=== PATIENT | male | born 1980 | race Two or more races ===

== ENCOUNTER 2019-02-14 17:30 | Emergency (ER) | payer OTHER ==
[~2019-02-14] VITALS: Ht 172.7 cm; Wt 77.1 kg
[~2019-02-14 17:30] MED LIST: ALBUTEROL2.5 MG/3 M IH; OSEL75CA PO
[2019-02-15] MEDS ORDERED: BUTALBIT-ACETA1 EACH PO (00:17)
[2019-02-15] MEDS ORDERED: AIRBORNE EFFER1 EACH PO (00:17)
== END 2019-02-15 00:30 | disposition home or self-care (01) ==
LOC: ER 17:30
DX: K52.9 Noninfective gastroenteritis and colitis, unspecified (principal); E86.0 Dehydration

== ENCOUNTER 2019-03-06 20:47 | Emergency (ER) | payer OTHER ==
[~2019-03-06] VITALS: Ht 172.7 cm; Wt 77.1 kg
[~2019-03-06 20:47] MED LIST changes: +AIRBORNE EFFER1 EACH PO; +BUTALBIT-ACETA1 EACH PO
[2019-03-06] MEDS ORDERED: SODIUM CHLORIDE (21:06)
[2019-03-06] MEDS ORDERED: [UNRECOGNIZED DRUG - OTHER] (21:07)
== END 2019-03-06 23:54 | disposition home or self-care (01) ==
LOC: ER 20:47
DX: J32.8 Other chronic sinusitis (principal)

== ENCOUNTER 2020-07-03 20:11 | Emergency (ER) | payer OTHER ==
[~2020-07-03] VITALS: Ht 172.7 cm; Wt 85.7 kg
[~2020-07-03 20:11] MED LIST changes: +SODIUM CHLORIDE; +[UNRECOGNIZED DRUG - OTHER]
[2020-07-05] MEDS ORDERED: MEDROL8 MG PO (04:46)
== END 2020-07-03 21:44 | disposition home or self-care (01) ==
LOC: ER 20:11
DX: H01.005 Unspecified blepharitis left lower eyelid (principal)

== ENCOUNTER → 2020-07-04 | Emergency (ER) | payer OTHER ==
[~2020-07-04] VITALS: Ht 170.2 cm; Wt 77.1 kg
[~2020-07-04] MED LIST changes: +MEDROL8 MG PO
== END | disposition home or self-care (01) ==
LOC: ER 23:44
DX: H01.002 Unspecified blepharitis right lower eyelid (principal)

== ENCOUNTER 2020-10-30 18:15 | Emergency (ER) | payer OTHER ==
[~2020-10-30] VITALS: Ht 175.3 cm; Wt 90.7 kg
== END 2020-10-30 22:29 | disposition home or self-care (01) ==
LOC: ER 18:15
DX: H00.011 Hordeolum externum right upper eyelid (principal)

== ENCOUNTER → 2021-05-01 | Emergency (ER) | payer OTHER ==
[~2021-05-01] VITALS: Ht 175.3 cm; Wt 81.6 kg
== END | disposition left against medical advice (07) ==
LOC: ER 22:41
DX: Z53.21 Procedure and treatment not carried out due to patient leaving prior to being seen by health care provider (principal)